=== PATIENT | female | born 1980 | race Caucasian/White ===

== ENCOUNTER 2017-03-24 07:48 | Emergency (ER) | payer OTHER ==
[~2017-03-24] VITALS: Ht 165.1 cm; Wt 77.3 kg
[~2017-03-24 07:48] MED LIST: BENTYL20 MG PO; CITRATE OF MAG296 ML PO; COLACE100 MG PO; DICYCLOMINE HCL20 MG PO; DOCUSATE SODIU100 MG PO; FLEXERIL10 MG PO; MIRALAX17 GM PO; MOTRIN600 MG PO; NAPROSYN500 MG PO; NO HOME MEDS; NORCO 5/3251 TABLET PO; PHENERGAN25 MG PR; PROMETHAZINE HC25 M1 PO; TRAMADOL HCL50 MG PO; ULTRAM50 MG PO; ZOFRAN ODT8 MG PO
[2017-03-24 08:18] LABS: EOSINOPHIL (%) 0 % (0-5); HEMATOCRIT 46.4 % (36.0-46.0); IMMATURE GRANULOCYTE (%) 0.4 % (0.0-0.7); INSTRUMENT ABS NEUTROPHIL CT 8.5 K/uL; LYMPHOCYTE COUNT 0.7 K/uL (1.0-2.8); MCH 30.6 PG (29.0-34.0); MCHC 33.2 G/DL (30.0-36.0); MCV 92.2 FL (83-99); MEAN PLAT.VOLUME 9.3 uM^3 (9.5-12.4); MONOCYTE (%) 4.9 % (3-12); MONOCYTE COUNT 0.5 K/uL (0-0.8); NEUTROPHIL (%) 87.2 % (45-76); NEUTROPHIL COUNT 8.5 K/uL (1.8-6.4); PLATELET COUNT 230 K/uL (156-360); RBC DIS.WIDTH-CV 12.2 % (11.8-14.6); RBC DIS.WIDTH-SD 41.6 % (39-53); RED BLOOD COUNT 5.03 M/uL (3.80-5.20); WHITE BLOOD COUNT 9.8 K/uL (4.1-10.2)
[2017-03-24 08:26] LABS: CHLORIDE 109 mEq/L (99-109); POTASSIUM 4.3 mEq/L (3.7-5.4); SODIUM 140 mEq/L (136-147)
[2017-03-24 08:27] LABS: ADD MIUA? YES; BILIRUBIN NEGATIVE; BLOOD NEGATIVE; COLOR YELLOW ((YELLOW)); GLUCOSE (STRIP) NEGATIVE; KETONES 5; LEUKOCYTES NEGATIVE; NITRITE NEGATIVE; PROTEIN (STRIP) NEGATIVE; UROBILINOGEN 0.2 MG/DL (0.2-1.0)
[2017-03-24 08:28] LABS: GLUCOSE 111 mg/dL (70-99)
[2017-03-24 08:28] LABS: INTERNAL CONTROL VALID? YES
[2017-03-24 08:29] LABS: ANION GAP 6 MEQ/L (2-14)
[2017-03-24 08:30] LABS: BACTERIA RARE /HPF; EPITHELIAL CELLS NONE SEEN /HPF; MUCUS TRACE /LPF; RED BLOOD CELLS NONE SEEN /HPF (0-5); UCUL ADDED? NO; WHITE BLOOD CELLS NONE SEEN /HPF (0-5)
[2017-03-24 08:32] LABS: GFR ESTIMATE (CALCULATED) > 59 mL/min/; UREA NITROGEN (BUN) 7 mg/dL (9-23)
[2017-03-24] MEDS ORDERED: ZOFRAN4 MG PO (10:30)
[2017-03-24] MEDS ORDERED: PERCOCET 5/31 TABLET PO (10:30)
[2017-03-24 10:58] VITALS: BP 107/63
== END 2017-03-24 10:59 | disposition home or self-care (01) ==
LOC: EME 07:48
PROVIDERS: Emergency Medicine
DX: R10.30 Lower abdominal pain, unspecified (principal); B34.9 Viral infection, unspecified; N83.02 Follicular cyst of left ovary; N83.01 Follicular cyst of right ovary; Z90.49 Acquired absence of other specified parts of digestive tract; F17.200 Nicotine dependence, unspecified, uncomplicated
CPT/HCPCS: 74176; 80048; 81003; 84703; 85025; 99281; 99285; J2270; J2405; J7030